=== PATIENT | male | born 1975 | race Two or more races ===

== ENCOUNTER 2020-02-20 21:35 | Emergency (ER) | payer OTHER ==
[~2020-02-20] VITALS: Ht 185.4 cm; Wt 94.8 kg
[2020-02-21] MEDS ORDERED: ORPHENADRINE C100 MG PO (00:59)
[2020-02-21] MEDS ORDERED: VOLTAREN-XR100 MG PO (00:59)
== END 2020-02-21 01:23 ==
LOC: ER 21:35
DX: S22.060A Wedge compression fracture of T7-T8 vertebra, initial encounter for closed fracture (principal); M54.2 Cervicalgia; W10.8XXA Fall (on) (from) other stairs and steps, initial encounter; Y93.89 Activity, other specified; Y92.018 Other place in single-family (private) house as the place of occurrence of the external cause; Y99.8 Other external cause status